=== PATIENT | female | born 2000 | race Two or more races ===

== ENCOUNTER 2023-05-27 08:48 | Outpatient (CLI) | payer OTHER | END 2023-05-27 08:50 | disposition home or self-care (01) | LOC: PRENATAL 08:48 | PROVIDERS: ATTEND Obstetrics & Gynecology Maternal & Fetal Medicine | DX: O36.80X0 Pregnancy with inconclusive fetal viability, not applicable or unspecified (principal); Z36.82 Encounter for antenatal screening for nuchal translucency; O10.019 Pre-existing essential hypertension complicating pregnancy, unspecified trimester; Z36.9 Encounter for antenatal screening, unspecified; Z3A.13 13 weeks gestation of pregnancy ==

== ENCOUNTER 2023-07-14 13:12 | Outpatient (CLI) | payer OTHER | END 2023-07-14 13:13 | disposition home or self-care (01) | LOC: PRENATAL 13:12 | PROVIDERS: ATTEND Obstetrics & Gynecology Maternal & Fetal Medicine | DX: O36.80X0 Pregnancy with inconclusive fetal viability, not applicable or unspecified (principal); O26.849 Uterine size-date discrepancy, unspecified trimester; O99.210 Obesity complicating pregnancy, unspecified trimester; Z3A.10 10 weeks gestation of pregnancy ==

== ENCOUNTER → 2023-10-21 14:08 | Outpatient (CLI) | payer OTHER ==
[~2023-10-21 14:08] MED LIST: ADULT LOW DOSE81 M1; MUCINEX FAST-M180 M2 PO; ZITHROMAX500 MG PO
== END | disposition home or self-care (01) ==
LOC: PRENATAL 14:08
PROVIDERS: ATTEND Obstetrics & Gynecology Maternal & Fetal Medicine
DX: O26.843 Uterine size-date discrepancy, third trimester (principal); O36.8130 Decreased fetal movements, third trimester, not applicable or unspecified; O10.913 Unspecified pre-existing hypertension complicating pregnancy, third trimester; Z3A.34 34 weeks gestation of pregnancy

== ENCOUNTER 2023-11-14 14:30 | Inpatient (IN) | payer OTHER ==
[~2023-11-14] VITALS: Ht 147.3 cm; Wt 2.3 kg
[2023-11-24] MEDS ORDERED: PRENATAL TABLE1 EAC1 PO (08:48)
[2023-11-24 09:05] LABS: HEMATOCRIT 39.1 % (36.0-45.00); HEMOGLOBIN 13.5 g/dL (12.0-15.00); MEAN CELL VOLUME 89.2 fL (80.00-100.00); MEAN CORPUSCULAR HEMOGLOBIN 30.9 pg (27.00-32.0); MEAN CORPUSCULAR HGB CONC 34.6 g/dl (32.0-36.0); PLATELET COUNT 152 K/uL (150-450); RED BLOOD COUNT 4.38 M/uL (4.00-6.00); RED CELL DISTRIBUTION WIDTH 14.3 % (11.5-14.5)
[2023-11-24 09:11] LABS: URINE APPEARANCE Cloudy; URINE BILIRRUBIN Negative (NEGATIVE); URINE BLOOD Negative; URINE COLOR Yellow; URINE GLUCOSE Negative (NEGATIVE); URINE KETONE Negative (NEGATIVE); URINE LEUKOCYTE Negative; URINE NITRATE Negative; URINE PROTEIN Trace (NEGATIVE); URINE UROBILINOGEN 0.2 E.U./dl
[2023-11-24 09:14] LABS: URINE BACTERIA 1419.9 uL (0.0-1933); URINE RBC 5.9 uL (0.0-20.8); URINE WBC 4.9 uL (0.0-23.2)
[2023-11-24] MEDS ORDERED: MISOPROSTOL 25 MCG/4 ML GEL.W.APPL ONE (09:37)
[2023-11-24 09:42] LABS: INR < 0.93; PARTIAL THROMBOPLASTIN TIME 26.2 SECONDS (22.0-34.0); PROTHROMBIN TIME 9.6 SECONDS (9.0-11.5)
[2023-11-24] MEDS ORDERED: MISOPROSTOL 25 MCG/4 ML GEL.W.APPL VAG ONE ×2 (09:45→13:45)
[2023-11-24 09:59] LABS: ALBUMIN 3.4 gm/dL (3.4-5.0); BILIRUBIN TOTAL 0.5 mg/dL (0.3-1.2); CALCIUM 9.4 mg/dL (8.5-10.1); CREATININE SERUM 0.61 mg/dL (0.55-1.02); GFR 122.65; GLOBULINA 3.5 G/DL (2.4-3.5); POTASSIUM 4.48 mEq/L (3.5-5.1); TOTAL PROTEIN 6.9 gm/dL (6.4-8.2)
[2023-11-24 10:36] LABS: URINE EPITHELIAL CELLS > 201.7 uL (0.0-38.8)
[2023-11-24] MEDS ORDERED: RINGERS SOLUTION,LACTATED 1,000 ML IV SCH (11:00)
[2023-11-24] MEDS ORDERED: MISOPROSTOL 25 MCG TABLET VAG NR (17:45)
[2023-11-25] MEDS ORDERED: MISOPROSTOL 25 MCG TABLET ONE (07:28)
[2023-11-25] MEDS ORDERED: MISOPROSTOL 25 MCG TABLET VAG ONE (07:45)
[2023-11-25] MEDS ORDERED: CEFAZOLIN SODIUM 1,000 MG VIAL IV SCH (13:30)
[2023-11-25] MEDS ORDERED: OXYTOCIN 10 UNITS/ML VIAL ONE ×2 (16:59→20:18)
[2023-11-25] MEDS ORDERED: ERYTHROMYCIN BASE 1 GM TUBE OP ONE (17:00)
[2023-11-25] MEDS ORDERED: METOCLOPRAMIDE HCL 5 MG/ML VIAL IV NR (18:45)
[2023-11-25] MEDS ORDERED: MORPHINE SULFATE 4 MG/ML CARTRIDGE IV PRN (18:45)
[2023-11-25] MEDS ORDERED: OXYTOCIN 1,000 ML IV SCH (18:45)
[2023-11-25] MEDS ORDERED: ONDANSETRON HCL 2 MG/ML VIAL IV PRN (18:45)
[2023-11-25] MEDS ORDERED: SENNOSIDES 1 TAB TABLET PO SCH (21:00)
[2023-11-25] MEDS ORDERED: SIMETHICONE 125 MG CAPSULE PO SCH (21:00)
[2023-11-26 05:35] LABS: HEMOGLOBIN 13.9 g/dL (12.0-15.00); MEAN CELL VOLUME 91.8 fL (80.00-100.00); MEAN CORPUSCULAR HEMOGLOBIN 31.1 pg (27.00-32.0); MEAN CORPUSCULAR HGB CONC 33.9 g/dl (32.0-36.0); PLATELET COUNT 150 K/uL (150-450); RED BLOOD COUNT 4.46 M/uL (4.00-6.00); RED CELL DISTRIBUTION WIDTH 14.4 % (11.5-14.5)
[2023-11-26] MEDS ORDERED: IBUprofen 800 MG TABLET PO SCH (09:00)
[2023-11-26] MEDS ORDERED: ACETAMINOPHEN 500 MG GEL..CAP PO SCH (12:00)
[2023-11-26 15:25] LABS: ALBUMIN 2.8 gm/dL (3.4-5.0); BILIRUBIN TOTAL 0.51 mg/dL (0.3-1.2); CALCIUM 9.9 mg/dL (8.5-10.1); CREATININE SERUM 0.55 mg/dL (0.55-1.02); GFR 138.21; GLOBULINA 2.9 G/DL (2.4-3.5); POTASSIUM 4.42 mEq/L (3.5-5.1); TOTAL PROTEIN 5.7 gm/dL (6.4-8.2)
[2023-11-26 16:19] LABS: URINE APPEARANCE Clear; URINE BILIRRUBIN Negative (NEGATIVE); URINE BLOOD Large; URINE COLOR Orange; URINE GLUCOSE Negative (NEGATIVE); URINE KETONE Negative (NEGATIVE); URINE LEUKOCYTE Trace; URINE NITRATE Negative
[2023-11-26 16:22] LABS: URINE BACTERIA 141.1 uL (0.0-1933); URINE EPITHELIAL CELLS 31.5 uL (0.0-38.8); URINE RBC 4221.7 uL (0.0-20.8); URINE WBC 70.4 uL (0.0-23.2)
[2023-11-26 16:51] LABS: URINE CAST 0.45 uL (0.0-1.40); URINE PROTEIN 100 (NEGATIVE)
== END 2023-11-28 13:08 | disposition home or self-care (01) | DRG 787 ==
LOC: O/R 11-24 07:58 → LDR 11-24 07:58 → O/R 11-25 17:28 → OB/GYN 11-25 19:28
PROVIDERS: Obstetrics & Gynecology; ADMIT Obstetrics & Gynecology; ATTEND Obstetrics & Gynecology
PROC: 3E0P7VZ Introduction of Hormone into Female Reproductive, Via Natural or Artificial Opening (ICD-10-PCS; 2023-11-24)
PROC: 4A1HXCZ Monitoring of Products of Conception, Cardiac Rate, External Approach (ICD-10-PCS; 2023-11-24)
PROC: 3E033VJ Introduction of Other Hormone into Peripheral Vein, Percutaneous Approach (ICD-10-PCS; 2023-11-25)
PROC: 10D00Z1 Extraction of Products of Conception, Low, Open Approach (ICD-10-PCS; principal; 2023-11-25 17:00)
DX: O61.0 Failed medical induction of labor (principal); O10.02 Pre-existing essential hypertension complicating childbirth; Z3A.39 39 weeks gestation of pregnancy; Z37.0 Single live birth; Z20.822 Contact with and (suspected) exposure to COVID-19